=== PATIENT | male | born 1965 | race Caucasian/White ===

== ENCOUNTER 2018-07-15 10:00 | Inpatient (IN) | payer OTHER ==
[~2018-07-15] VITALS: Ht 160 cm; Wt 78.5 kg
[2018-07-15] MEDS ORDERED: TARKA (14:14)
[2018-07-15] MEDS ORDERED: [UNRECOGNIZED DRUG - OTHER] PO (14:15)
[2018-07-15] MEDS ORDERED: ZIAC 10/6.25 MG1 TAB PO (14:15)
[2018-07-15] MEDS ORDERED: ZIAC 5-6.25 MG1 EACH PO (14:22)
== END 2018-07-22 12:13 | disposition home or self-care (01) | DRG 331 ==
LOC: EDSTATUS 10:00 → ADM 10:00 → O/R 07-18 07:31 → SURG 07-18 07:31 → SURH 07-18 10:00 → SURG 07-18 12:36 → SURH 07-18 15:30 → SURG 07-22 12:13
PROVIDERS: Surgery
PROC: 07TC4ZZ Resection of Pelvis Lymphatic, Percutaneous Endoscopic Approach (ICD-10-PCS; 2018-07-18)
PROC: 4A033R1 Measurement of Arterial Saturation, Peripheral, Percutaneous Approach (ICD-10-PCS; 2018-07-18)
PROC: 0DTF4ZZ Resection of Right Large Intestine, Percutaneous Endoscopic Approach (ICD-10-PCS; principal; 2018-07-18 15:30)
DX: D12.0 Benign neoplasm of cecum (principal); I11.9 Hypertensive heart disease without heart failure; G47.33 Obstructive sleep apnea (adult) (pediatric); E11.9 Type 2 diabetes mellitus without complications; D64.89 Other specified anemias